=== PATIENT | female | born 2000 | race Caucasian/White ===

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

== ENCOUNTER 2019-01-23 23:26 | Emergency (ER) | payer BC, MEDICAID ==
--- OUTSIDE RECORDS SUMMARY | 2019-01-23 23:37 | XMS REPORT ---
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, 02-16 Unspecified Relevant diagnostic tests/laboratory data Narrative No Information Procedures Procedure Code CodeSystem Target Date of Status Service Device Device Device Name Site Procedure Delivery Code Name UID Location Psychother [id number] SNOMED-CT () 2018-12-17 completed Mental apy, 45 4 Health- minutes [facility] with [facility] patient [address] [place], [place], [id number] Encounters/Encounter Diagnoses Encounter Name Encounter Diagnosis Diagnosis Diagnosis Date of Service Code Code Name CodeSystem Diagnosis Delivery Location Psychotherapy - 10351 [id number] Adjustment SNOMED-CT 2018-12-17 Behavioral Individual 30 disorder, Health min [facility] [address], [place], [phone] Vital Signs No Information Social History Element Description Description Start End Code CodeSystem AdditionalInfo Date Date SexAssignedAtBirth Female 2000-02 F AdministrativeGender 0-12 Hospital Discharge Instructions Reason For Referral Medical Equipment FDA Assessments
--- OUTSIDE RECORDS SUMMARY | 2019-01-23 23:37 | XMS REPORT ---
:2000 Author Name Claudine Kirkpatrick Address [address] [place] [address] Care Team Providers Name Role Phone Claudine Kirkpatrick Primary Care Physician Unavailable Allergies, Adverse Reactions, Alerts Allergy Code CodeSystem Reaction Severity Criticality Status Start Substance Date Moderate Medications Medication Medication Medication Start Stop Route Dose Status Fill Code CodeSystem Date Date Instructions RxNorm Problems Problem Name Code CodeSystem Alternate Alternate Start End Status Narrative Code CodeSystem Date Date Adjustment 53377933 SNOMED-CT 2018-02 Active disorder, 02-16 Unspecified Relevant diagnostic tests/laboratory data Narrative No Information Procedures Procedure Code CodeSystem Target Date of Status Service Device Device Device Name Site Procedure Delivery Code Name UID Location Psychother [id number] SNOMED-CT () 2018-12-17 completed Mental apy, 45 4 Health- minutes [address], [id number] SNOMED-CT () 2018-12-07 completed Mental [facility], [id number] Encounters/Encounter Diagnoses Encounter Name Encounter Diagnosis Diagnosis Diagnosis Date of Service Code Code Name CodeSystem Diagnosis Delivery Location Psychotherapy - 28118 [id number] Adjustment SNOMED-CT 2018-12-17 Behavioral Individual 30 disorder, Health min Unspecified Clinic [address] [place] [address], [phone] Vital Signs No Information Social History Element Description Description Start End Code CodeSystem AdditionalInfo Date Date SexAssignedAtBirth Female 2000- F AdministrativeGender 0-12 Hospital Discharge Instructions Reason For Referral Medical Equipment FDA Assessments
[2019-01-23] MEDS ORDERED: Ibuprofen TAB* 600 MG PO ONE (23:40)
--- NOTE | 2019-01-23 23:45 | ED ---
Adult Trauma - HPI Summary HPI Summary: Patient complains of right side pain status post mechanical fall in her bathroom today. Patient states she lost her balance and hit the towel rack to the right side and then hit the edge of the bathtub with her right side. Patient is ambulatory, denies head injury, any other pain injury or symptoms. - History of Current Complaint Chief Complaint: EDFall Stated Complaint: FALL PER PT Time Seen by Provider: 01/23/19 23:32 Hx Obtained From: Patient Mechanism of Injury: Fall Ambulatory at the Scene: Yes Loss of Consciousness: no loss of consciousness Onset/Duration: Started Minutes Ago Onset of Pain: Immediate Onset Severity: Severe Current Severity: Severe Pain Intensity: 9 Pain Scale Used: 0-10 Numeric Location: Chest Character: Aching Aggravating Factor(s): Movement, Deep Breaths, Palpation Alleviating Factor(s): Rest, Shallowing Breathing - Allergy/Home Medications Allergies/Adverse Reactions: Allergies Allergy/AdvReac Type Severity Reaction Status Date / Time bee venom protein (honey bee) Allergy Anaphylatic Verified 01/23/19 23:28 Shock lavender (Lavandula Allergy Anaphylatic Verified 01/23/19 23:28 angustifolia) Shock PMH/Surg Hx/FS Hx/Imm Hx Endocrine/Hematology History: Denies: Hx Diabetes Cardiovascular History: Denies: Hx Coronary Artery Disease Respiratory History: Denies: Hx Asthma History: Denies: Hx Dialysis Sensory History: Denies: Hx Contacts or Glasses, Hx Legally Blind, Hx Deafness Opthamlomology History: Denies: Hx Contacts or Glasses, Hx Legally Blind EENT History: Denies: Hx Deafness Neurological History: Reports: Other Neuro Impairments/Disorders - possible hx of seizures Psychiatric History: Denies: Hx Eating Disorder - Surgical History Surgery Procedure, Year, and Place: none Infectious Disease History: No Infectious Disease History: Denies: Traveled Outside the [place] in Last 30 Days - Family History Known Family History: Positive: Non-Contributory Negative: Hypertension - Social History Alcohol Use: Rare Hx Substance Use: Yes Substance Use Type: Reports: Marijuana Hx Tobacco Use: Yes Smoking Status (MU): Heavy Every Day Tobacco Smoker Review of Systems Constitutional: Negative Eyes: Negative ENT: Negative Cardiovascular: Negative Respiratory: Negative Gastrointestinal: Negative Genitourinary: Negative Musculoskeletal: Other Skin: Other Neurological: Negative Psychological: Normal All Other Systems Reviewed And Are Negative: Yes Physical Exam - Summary Physical Exam Summary: Abrasions to right side. Pain with palpation of entire lateral right side. Breath sounds clear to auscultation bilaterally. No ecchymosis, erythema, deformity, swelling noted. No evidence of trauma to mouth, face, head. No pain with palpation of neck, back, chest, abdomen. Patient ambulatory. Patient in full sentences. Sitting up and down and getting to standing position without hesitation. Triage Information Reviewed: Yes Vital Signs On Initial Exam: Initial Vitals Temp Pulse Resp BP Pulse Ox 97.8 F 122 16 129/88 97 01/23/19 23:27 01/23/19 23:27 01/23/19 23:27 01/23/19 23:27 01/23/19 23:27 Vital Signs Reviewed: Yes Appearance: Positive: Well-Appearing Skin: Positive: Warm Head/Face: Positive: Normal Head/Face Inspection Eyes: Positive: Normal Neck: Positive: Supple Respiratory/Lung Sounds: Positive: Clear to Auscultation Cardiovascular: Positive: Normal Abdomen Description: Positive: Nontender Musculoskeletal: Positive: Normal Neurological: Positive: Normal Psychiatric: Positive: Normal AVPU Assessment: Alert - [place] Coma Scale Best Eye Response: 4 - Spontaneous Best Motor Response: 6 - Obeys Commands Best Verbal Response: 5 - Oriented Coma Scale Total: 15 Procedures - Sedation Patient Received Moderate/Deep Sedation with Procedure: No Diagnostics - Vital Signs Vital Signs Temp Pulse Resp BP Pulse Ox 01/23/19 23:27 97.8 F 122 16 129/88 97 - Laboratory Lab Statement: Any lab studies that have been ordered have been reviewed, and results considered in the medical decision making process. Adult Trauma Course/Dx - Course Course Of Treatment: Patient complains of right side pain status post mechanical fall in her bathroom today. Patient states she lost her balance and hit the towel rack to the right side and then hit the edge of the bathtub with her right side. Patient is ambulatory, denies head injury, any other pain injury or symptoms. Vital signs within normal limits. X-ray ribs and chest negative for acute process - Diagnoses Provider Diagnoses: Fall, Right-sided chest wall pain Discharge ED - Sign-Out/Discharge Documenting (check all that apply): Patient Departure - Discharge Plan Condition: Stable Disposition: HOME Patient Education Materials: Chest Wall Pain (ED) Referrals: No Primary Care Phys,NOPCP [Primary Care Provider] - Additional Instructions: Alternate ibuprofen 600 mg with Tylenol 650 mg every 3 hours for chest wall pain. Follow-up with primary care. Return to the ED for any new or worsening symptoms. - Billing Disposition and Condition Condition: STABLE Disposition: Home
[2019-01-24] MEDS ORDERED: Ondansetron ODT TAB* 4 MG PO ONE (00:14)
[2019-01-24] MEDS ORDERED: Tetan/Diph/Pertus SYR(Tdap)* 0.5 ML SYR(BOOSTRIX) use SYR contains LATEX IM ONE (00:32)
[2019-01-24 00:55] VITALS: BP 129/99
== END 2019-01-24 00:15 | disposition home or self-care (01) ==
LOC: ED 23:26
DX: R07.89 Other chest pain (principal); S20.311A Abrasion of right front wall of thorax, initial encounter; W18.09XA Striking against other object with subsequent fall, initial encounter; Y92.002 Bathroom of unspecified non-institutional (private) residence as the place of occurrence of the external cause; Z23 Encounter for immunization; Z91.030 Bee allergy status; Z91.09 Other allergy status, other than to drugs and biological substances; F17.200 Nicotine dependence, unspecified, uncomplicated
CPT/HCPCS: 90471; 90715; 99282; A9270-GY